=== PATIENT | male | born 1965 | race Hispanic/Latino ===

== ENCOUNTER 2020-03-03 10:56 | Inpatient (IN) | payer BC, OTHER ==
[2020-02-27 11:54] LABS: BASOPHILS % 0.2 % (0.0-1.0); EOSINOPHILS # (AUTO) 0.1 (0.0-0.4); EOSINOPHILS % 1.2 % (0.0-6.0); HEMATOCRIT 39.7 % (38.2-49.6); HEMOGLOBIN 13.3 g/dL (14.0-18.0); LYMPHOCYTES # (AUTO) 1.3 (1.0-3.2); LYMPHOCYTES % 30.6 % (18.0-39.1); MEAN CORPUSCULAR HEMOGLOBIN 29.3 pg (28-32); MEAN CORPUSCULAR HGB CONC 33.5 g/dL (31-35); MEAN CORPUSCULAR VOLUME 87.4 fL (81-99); MONOCYTES # (AUTO) 0.4 (0.2-0.8); MONOCYTES % 10.3 % (4.4-11.3); NEUTROPHILS # (AUTO) 2.3 (2.1-6.9); NEUTROPHILS % 56.7 % (38.7-80.0); PLATELET COUNT 229 x10e3/uL (140-360); RED BLOOD COUNT 4.54 x10e6/uL (4.3-5.7); RED CELL DISTRIBUTION WIDTH 12.4 % (11.7-14.4)
[2020-02-27 12:17] LABS: ANION GAP 13.6 mmol/L (8-16); BLOOD UREA NITROGEN 8 mg/dL (7-26); BUN/CREATININE RATIO 7 (6-25); CALCIUM 9.1 mg/dL (8.4-10.2); CARBON DIOXIDE 22 mmol/L (22-29); CHLORIDE 104 mmol/L (98-107); CREATININE, SERUM 1.12 mg/dL (0.72-1.25); EST GLOMERULAR FILTRATION RATE > 60 ML/MIN (60-); GLUCOSE 86 mg/dL (74-118); POTASSIUM 3.6 mmol/L (3.5-5.1); SODIUM 136 mmol/L (136-145)
[2020-02-27 13:43] LABS: LYMPHOCYTES % (MANUAL) 25 % (19-48); MONOCYTES % (MANUAL) 10 % (3.4-9.0); NEUTROPHILS % (MANUAL) 62 % (40-74); PLATELET ESTIMATE ADEQUATE; PLATELET MORPHOLOGY COMMENT NORMAL; RBC MORPHOLOGY COMMENT NORMAL
[~2020-03-03] VITALS: Ht 167.6 cm; Wt 107.2 kg
[~2020-03-03 10:56] MED LIST: BICALUTAMIDE50 MG PO; FLOMAX0.4 MG PO
[2020-03-03] MEDS ORDERED: CEFAZOLIN SOD 1 GM/NS 50ML 100 ML IV ONE (11:17)
[2020-03-03] MEDS ORDERED: MIDAZOLAM HCL 2 MG/2 ML VIAL ONE (14:22)
[2020-03-03] MEDS ORDERED: FENTANYL CITRATE/PF 100MCG/2 ML INJ ONE (14:22)
[2020-03-03] MEDS ORDERED: ISOFLURANE INHAL SOLN 250 ML BTL INH ONE (15:02)
[2020-03-03] MEDS ORDERED: PROPOFOL IV EMULSION 10 MG/ML 20 ML VIAL ONE (15:02)
[2020-03-03] MEDS ORDERED: LIDOCAINE HCL 2% LOCAL INJ 5 ML SDV VIAL INJ ONE (15:02)
[2020-03-03] MEDS ORDERED: ONDANSETRON HCL INJ 2MG/ML 2ML 2 MG/ML VIAL ONE (15:02)
[2020-03-03] MEDS ORDERED: ROCURONIUM BROMIDE 10 MG/ML 5ML VIAL IV ONE (15:02)
[2020-03-03] MEDS ORDERED: HYDROMORPHONE 2MG/ML 2 MG/ML ML ONE (16:36)
[2020-03-03] MEDS ORDERED: NALOXONE HCL INJ 0.4 MG/ML AMP IV PRN (16:45)
[2020-03-03] MEDS ORDERED: SOD CHL 0.45%/POT CHL 20MEQ 1,000 ML IV SCH (16:45)
[2020-03-03] MEDS ORDERED: DIPHENHYDRAMINE HCL INJ 50 MG/ML VIAL IM PRN (16:45)
[2020-03-03] MEDS: SODIUM CHLORIDE 0.9% 250ML IRRIG IR SCH ×2 (16:45→22:04)
[2020-03-03] MEDS ORDERED: MORPHINE SULFATE 1 MG/ML 30ML PCA IV PRN (16:45)
[2020-03-03] MEDS ORDERED: ACETAMINOPHEN 1000 MG/100 ML IV PRN (16:45)
[2020-03-03] MEDS ORDERED: ONDANSETRON HCL INJ 2MG/ML 2ML 2 MG/ML VIAL IV PRN (16:45)
[2020-03-03] MEDS: DOCUSATE SODIUM 100 MG CAP PO SCH (17:00)
--- NOTE | 2020-03-03 17:19 | NUR ---
RECEIVED PATIENT FROM PACU. PATIENT A/O X3, EVEN RESPIRATIONS ON 2LNC. LUNG SOUNDS CLEAR TO AUSCULTATION. NGT TO RIGHT NARE LCWS. 19 FR JIMY DRAIN IN [address]ACE. MIDLINE ABDOMINAL INCISION, DRAINAGE CIRCLED. [address] WITH 30 CC BALLOON, URINE ORANGE, HEMATURIA PRESENT. LEFT HAND 20 GAUGE IV WITH IVF. HE HOSE AND SCD'S IN PLACE. MORPHINE BAKERY DECORATOR PUMP IN PLACE. VITAL SIGNS STABLE. CALL LIGHT IN REACH WILL CONTINUE TO MONITOR PATIENT.
[2020-03-03 17:40] VITALS: BP 110/72
[2020-03-03 17:43] VITALS: BP 110/72
[2020-03-03 17:45] VITALS: BP 110/72
[2020-03-03] MEDS: D5.45%NS/KCL 20MEQ 1,000 ML IV SCH (18:07)
[2020-03-03 20:00] VITALS: BP 120/74
--- NOTE | 2020-03-03 20:05 | NUR ---
PATIENT TRANSFERRED TO ROOM 185. PATIENT IS IN STABLE CONDITION. RECEIVING NURSE AT BEDSIDE. REPORT GIVEN BEFORE TRANSFER.
--- NOTE | 2020-03-03 20:20 | NUR ---
Received pt via stretcher to room. Pt a/o able to answer direct questions. Rates pain 8/10 on pain scale. Educated pt to push button for pain meds via Morphine GROCERY STOCKER. Resp even and unlabored. No s/sx of acute distress noted. Dsg to abd in tact, drainage bloody, noted and circled. Moralez to DD in place with red colored urine noted. Personal items within reach as well as call marin. Bed in low and locked position. Pt asking for water/ice chips will check orders and inform pt of npo status. IVF infusing no diff. Will cont to mon. Addendum: 03/04/20 at 0013 by Becki Livingston RN Moralez to DD noted to have sukhdev color urine
[2020-03-03] MEDS: CEFAZOLIN SOD 1 GM/NS 50ML 50 ML IV SCH (22:04)
[2020-03-03 22:31] VITALS: BP 120/74
[2020-03-04] VITALS (8 sets, daily range): BP systolic 123–130; BP diastolic 69–84
--- NOTE | 2020-03-04 00:11 | NUR ---
Pt sitting up in bed, educated on incentive spirometer. Pt demonstrate proper use. Encouraged to use every hour while awake 10 times. Pt verbalized agreement. Rates pain a 7 at this time, states it is tolerable and stated he is using the DREDGE MASTER. Will cont to mon.
[2020-03-04] MEDS: D5.45%NS/KCL 20MEQ 1,000 ML IV SCH ×2 (02:00→14:15)
[2020-03-04] MEDS: SODIUM CHLORIDE 0.9% 250ML IRRIG IR SCH ×6 (04:45→20:45)
[2020-03-04 05:36] LABS: BASOPHILS % 0.2 % (0.0-1.0); EOSINOPHILS # (AUTO) 0.1 (0.0-0.4); EOSINOPHILS % 1.6 % (0.0-6.0); HEMATOCRIT 37.3 % (38.2-49.6); LYMPHOCYTES # (AUTO) 1.1 (1.0-3.2); LYMPHOCYTES % 19.1 % (18.0-39.1); MEAN CORPUSCULAR HEMOGLOBIN 29.1 pg (28-32); MEAN CORPUSCULAR HGB CONC 32.2 g/dL (31-35); MEAN CORPUSCULAR VOLUME 90.5 fL (81-99); MONOCYTES # (AUTO) 0.7 (0.2-0.8); MONOCYTES % 12.1 % (4.4-11.3); NEUTROPHILS # (AUTO) 3.9 (2.1-6.9); NEUTROPHILS % 66.7 % (38.7-80.0); PLATELET COUNT 293 x10e3/uL (140-360); RED BLOOD COUNT 4.12 x10e6/uL (4.3-5.7); RED CELL DISTRIBUTION WIDTH 12.5 % (11.7-14.4)
[2020-03-04] MEDS: CEFAZOLIN SOD 1 GM/NS 50ML 50 ML IV SCH ×2 (06:00→13:50)
[2020-03-04 07:46] LABS: ANION GAP 12.7 mmol/L (8-16); BLOOD UREA NITROGEN 6 mg/dL (7-26); BUN/CREATININE RATIO 7 (6-25); CALCIUM 9.1 mg/dL (8.4-10.2); CARBON DIOXIDE 24 mmol/L (22-29); CHLORIDE 106 mmol/L (98-107); CREATININE, SERUM 0.85 mg/dL (0.72-1.25); EST GLOMERULAR FILTRATION RATE > 60 ML/MIN (60-); GLUCOSE 105 mg/dL (74-118); POTASSIUM 3.7 mmol/L (3.5-5.1); SODIUM 139 mmol/L (136-145)
[2020-03-04] MEDS: TAMSULOSIN HCL 0.4 MG CAP PO SCH (08:55)
[2020-03-04] MEDS: DOCUSATE SODIUM 100 MG CAP PO SCH ×2 (08:55→16:56)
[2020-03-04] MEDS: BICALUTAMIDE 50 MG TABLET PO SCH (08:55)
[2020-03-04] MEDS ORDERED: ACETAMINOPHEN 1000 MG/100 ML IV PRN (09:30)
[2020-03-04] MEDS ORDERED: ONDANSETRON HCL INJ 2MG/ML 2ML 2 MG/ML VIAL IV PRN (09:30)
--- NOTE | 2020-03-04 10:41 | History and Physical ---
The patient admitted for postop TURP procedure with bilateral pelvic lymph node dissection. The patient's COVID-19 test came back positive. SUMMARY: The patient is a 54-year-old male with prostate cancer. The patient is basically on prostate cancer medication treatment. The patient was scheduled for TURP procedures and also bilateral pelvic lymph node dissection and the test for COVID-19 was done prior to surgery, but results did not come back until after the surgery that was done. The patient's test, however, came back to be positive. The patient is now on isolation. He is on CAUL DRESSER pump for pain control. He is stable other than complained of postoperative care. No respiratory distress. No chest pain. No shortness of breath. No nausea or vomiting. The patient is admitted on isolation for COVID-19 positive. The patient is also admitted for postoperative care. PAST MEDICAL HISTORY: Prostate cancer, status post TURP with bilateral pelvic lymph node dissection. SOCIAL HISTORY: The patient does not smoke or use alcohol. No regular drug. ALLERGIES: NO KNOWN ALLERGIES. HOME MEDICATIONS: Flomax and Casodex. PHYSICAL EXAMINATION: VITAL SIGNS: Temperature 99.8, blood pressure 123/77, pulse rate is 83, and respirations 18. GENERAL: The patient is comfortable, postop. HEENT: Normocephalic and atraumatic. Anicteric. NECK: Supple grossly. PULMONARY: Diminished breath sounds. CARDIOVASCULAR: S1, S2. Regular rate and rhythm. ABDOMEN: Soft. Positive bowel sounds. Nontender, non-distention. Bilateral pelvic lymph node dissection status post. Status post TURP. EXTREMITIES: No cyanosis or edema. SCD in place. NEUROLOGIC: No focal deficit. LABORATORY DATA: WBC is 5.7, hemoglobin 12, hematocrit 37, and platelets 295. Chemistry; sodium 136, potassium 3.6, chloride 104, bicarb 22, BUN is 8, creatinine 1.1, glucose 86. SEROLOGY: COVID-19 PCR is detected. Test was done on February 27, 2020. IMPRESSION: 1. Status post postoperative care, TURP and bilateral pelvic lymph node dissection. 2. COVID-19 positive. 3. Prostate cancer. PLAN: Isolation of course. Oxygen support if needed. Postoperative care. Pain control. SCD. Home medication resumed. Diet as tolerated. Consultation with Infectious Disease. We will continue to monitor the patient closely at this time for any changes in respiratory symptoms. MD CAREY Boles /[id number]
--- NOTE | 2020-03-04 12:41 | NUR ---
URINARY TEMPLETON REMOVED PER PHYSICIAN ORDER. PATIENT TOLERATED PROCEDURE WELL. CATHETER TIP INTACT. PATIENT DUE TO VOID BY 1809. URINAL AT BEDSIDE. INSTRUCTED TO USE CALL LIGHT. NGT REMOVED PER PHYSICIAN ORDER.
[2020-03-04] MEDS: MORPHINE SULFATE INJ 4 MG/ML INJ 1ML IV PRN (14:14)
[2020-03-04] MEDS: MORPHINE SULFATE 1 MG/ML 30ML PCA IV PRN (14:25)
--- NOTE | 2020-03-04 17:54 | NUR ---
CONSULTATION [id number]
--- NOTE | 2020-03-04 20:48 | Consultation ---
DATE OF CONSULTATION: HISTORY OF PRESENT ILLNESS: This is a COVID patient, who is a 54-year-old, who comes into the hospital because of fatigue. The patient who has history of prostate cancer. He was scheduled for TURP, but his COVID-19 was positive, so the surgery was postponed. He is currently alert, oriented, but he is just weak. PAST SURGICAL HISTORY: Prostate cancer, status post TURP and bilateral pelvic lymph node. ALLERGIES: NKA. SOCIAL HISTORY: There is no smoking, drug abuse, or alcohol abuse. FAMILY HISTORY: Unremarkable. PHYSICAL EXAMINATION: GENERAL: He is currently alert, oriented, does not in acute distress. VITAL SIGNS: Stable, afebrile. HEENT: He is not icteric. NECK: Supple. CHEST: Clear. HEART: S1-S2. No murmur. ABDOMEN: Soft. IMPRESSION: Coronavirus disease, seems to me he has an upper respiratory infection, but he seems very comfortable. He is not on oxygen. From Infectious Disease point of view, the patient is stable to be discharged home, two weeks of home quarantine, supplement vitamins, zinc, and C and D and in 2 weeks if he continued to be stable, can proceed with surgery. However, his PCR could be still positive, but that does not really reflect virus infection at that time. If it is still positive and clinically seems to be stable recommendation of that is asymptomatic for more than 2 weeks and doing good. I think we can go off the droplet isolation. We will discuss with the medical team. MD JAYNA Robertson/MARIAN /[id number]
[2020-03-04] MEDS ORDERED: MEROPENEM 500MG/ NS 50ML 50 ML IV ONE (22:30)
[2020-03-05] VITALS (8 sets, daily range): BP systolic 113–132; BP diastolic 70–90
[2020-03-05] MEDS: D5.45%NS/KCL 20MEQ 1,000 ML IV SCH (02:00)
[2020-03-05] MEDS ORDERED: MEROPENEM 500MG/ NS 50ML 50 ML IV SCH (04:00)
--- NOTE | 2020-03-05 04:30 | NUR ---
Pt noted to have elevated temp during shift, reported at 102.7 oral. Call placed to ID MD with orders noted to change IVABX to Meropenem 500mg IV Q4hr. Pt also med with IC acetaminophen per OCT. Pt temp noted to decrease see vs. Will cont to tue.
[2020-03-05 05:36] LABS: BASOPHILS % 0.4 % (0.0-1.0); EOSINOPHILS % 0.2 % (0.0-6.0); HEMATOCRIT 37.6 % (38.2-49.6); HEMOGLOBIN 12.2 g/dL (14.0-18.0); LYMPHOCYTES # (AUTO) 1.2 (1.0-3.2); LYMPHOCYTES % 10.9 % (18.0-39.1); MEAN CORPUSCULAR HEMOGLOBIN 29.8 pg (28-32); MEAN CORPUSCULAR HGB CONC 32.4 g/dL (31-35); MEAN CORPUSCULAR VOLUME 91.7 fL (81-99); MONOCYTES # (AUTO) 1.3 (0.2-0.8); MONOCYTES % 11.9 % (4.4-11.3); NEUTROPHILS # (AUTO) 8.2 (2.1-6.9); NEUTROPHILS % 75.8 % (38.7-80.0); PLATELET COUNT 267 x10e3/uL (140-360); RED CELL DISTRIBUTION WIDTH 12.5 % (11.7-14.4)
[2020-03-05 05:53] LABS: ANION GAP 12.8 mmol/L (8-16); BLOOD UREA NITROGEN 5 mg/dL (7-26); BUN/CREATININE RATIO 5 (6-25); CALCIUM 8.9 mg/dL (8.4-10.2); CARBON DIOXIDE 20 mmol/L (22-29); CHLORIDE 107 mmol/L (98-107); CREATININE, SERUM 0.94 mg/dL (0.72-1.25); EST GLOMERULAR FILTRATION RATE > 60 ML/MIN (60-); GLUCOSE 97 mg/dL (74-118); POTASSIUM 3.8 mmol/L (3.5-5.1); SODIUM 136 mmol/L (136-145)
--- NOTE | 2020-03-05 07:46 | NUR ---
infectious disease progress note Patient seen and examined chart reviewed Patient is alert oriented no new complaints but with fever Vitals stable with fever HEENT normocephalic not be returning Neck supple no JVD Chest clear bilateral Heart S1-S2 Abdomen soft person present not tenderness Extremities no edema skin no rash Impression Fever not hypoxemic covid 19 We will get blood cultures urine cultures chest x-ray chest CAT scan Place the patient on Rocephin discontinue meropenem Continue droplet isolation
[2020-03-05 08:02] LABS: ALBUMIN 2.7 g/dL (3.5-5.0); BILIRUBIN,DIRECT 0.6 mg/dL (0.0-0.5)
[2020-03-05] MEDS: CEFTRIAXONE SOD 1 GM/NS 50 ML 50 ML IV SCH (09:17)
[2020-03-05] MEDS: BICALUTAMIDE 50 MG TABLET PO SCH (09:17)
[2020-03-05] MEDS: DOCUSATE SODIUM 100 MG CAP PO SCH ×2 (09:17→17:28)
[2020-03-05] MEDS: TAMSULOSIN HCL 0.4 MG CAP PO SCH (09:17)
[2020-03-05] MEDS ORDERED: IOPAMIDOL 370 MG/ML 200 ML INFUS..BTL INJ ONE ×2 (09:53→21:57)
--- NOTE | 2020-03-05 11:58 | NUR ---
DR. COHN AWARE OF T101.1. SEE ORDERS
[2020-03-05] MEDS ORDERED: ACETAMINOPHEN 1000 MG/100 ML IV PRN (12:30)
[2020-03-05] MEDS ORDERED: SODIUM CHLORIDE 0.9% 250ML 250 ML ONE (14:19)
[2020-03-05] MEDS ORDERED: VANCOMYCIN 1GM/NS 250 ML 250 ML IV ONE (14:30)
--- NOTE | 2020-03-05 14:59 | NUR ---
fever s/p surgery check ct rocephin and vanc
--- NOTE | 2020-03-05 19:20 | NUR ---
Completed BS rounds with morning nurse. Pt alert and oriented to name. CARD PLACER pump admin recorded. Call light and phone within reach. c/o bilateral leg pains, encouraged to use CARD PLACER when available. Will continue to monitor.
--- NOTE | 2020-03-05 19:30 | NUR ---
Report given to oncoming nurse of patient's status. Resting in bed. NO s/s of acute distress noted. abdominal dressing clean, dry, and intact. Side rails upx2, call light within reach, bed alarm on.
--- NOTE | 2020-03-05 19:34 | Diagnostic Imaging Report ---
EXAMINATION: CHEST XRAY LINE PLACEMENT INDICATION: ^s/p PICC line placement ^[id number] ^[id number] COMPARISON: None FINDINGS: AP view TUBES and LINES: Left PICC in place with tip projecting over the junction of SVC and left brachiocephalic vein. LUNGS: Lungs are well inflated. Right lower lobe airspace opacities. PLEURA: No significant pleural effusion or pneumothorax. HEART AND MEDIASTINUM: The cardiomediastinal silhouette is enlarged. BONES AND SOFT TISSUES: No acute osseous lesion. Soft tissues are unremarkable. UPPER ABDOMEN: No free air under the diaphragm. IMPRESSION: Left PICC in place with tip projecting over the junction of SVC and left brachiocephalic vein. No visible pneumothorax. Right lower lobe airspace opacities, representing atelectasis and/or pneumonia in the appropriate clinical context. Signed by: Dr. Zeus Guerrero MD on 03/05/2020 7:31 PM
--- NOTE | 2020-03-05 20:20 | NUR ---
Transported to radiology for CT chest W via stretcher.
[2020-03-05] MEDS ORDERED: SODIUM CHLORIDE 0.9% 50ML 50 ML ONE (21:57)
--- NOTE | 2020-03-05 22:02 | NUR ---
Spoke with Dr. Alexis, radiologist. regarding CT chest W, gave results, requested primary Dr. Reyes phone number, stated will call Dr. Reyes with results.
--- NOTE | 2020-03-05 22:16 | Diagnostic Imaging Report ---
EXAM: CT Chest, Abdomen and Pelvis WITH contrast INDICATION: Fever COMPARISON: None. TECHNIQUE: Chest, abdomen and pelvis were scanned utilizing a multidetector helical scanner from the lung apex to the pubic symphysis after administration of IV contrast. Coronal and sagittal reformations were obtained. Routine protocol was performed. Scan was performed when during portal venous phase. IV CONTRAST: 100 mL of Isovue 370 ORAL CONTRAST: None COMPLICATIONS: None RADIATION DOSE: Total DLP: 1041 mGy*cm Estimated effective dose: (DLP x 0.015 x size factor) mSv CTDIvol has been reviewed. It is below the limits set by the Radiation Protocol Committee (RPC). Dose modulation, iterative reconstruction, and/or weight based adjustment of the mA/kV was utilized to reduce the radiation dose to as low as reasonably achievable. FINDINGS: LINES and TUBES: Left upper extremity PICC tip terminates in the right atrium. Percutaneous drain in the lower pelvis. LUNGS AND AIRWAYS: Filling defect within the left lower lobar pulmonary artery extending into basal segmental branches (series 2 image 24). Debris in the lower lobe bronchus with some mucus plugging. Coarse opacities in the lung bases. Scattered bilateral ground glass opacities. PLEURA: The pleural spaces are clear. HEART AND MEDIASTINUM: The thyroid gland is normal. No mediastinal, hilar or axillary lymphadenopathy. The heart is normal in size. There is no pericardial effusion. Flattened interventricular septum. Right ventricle volume greater than the left. HEPATOBILIARY: No focal hepatic lesions. No biliary ductal dilation. GALLBLADDER: No radio-opaque stones or sludge. No wall thickening. SPLEEN: No splenomegaly. PANCREAS: No focal masses or ductal dilatation. Fatty infiltration of the pancreas. ADRENALS: No adrenal nodules KIDNEYS/URETERS: Kidneys enhance symmetrically. No hydronephrosis. No cystic or solid mass lesions. No stones. GI TRACT: No abnormal distention, wall thickening, or evidence of bowel obstruction. Appendix is normal. PELVIC ORGANS/BLADDER: Surgeries of prostate resection in the lower central pelvis Mild urinary bladder wall thickening. LYMPH NODES: No lymphadenopathy. Surgical changes of no resection in the lower pelvis. VESSELS: Arterial calcifications. PERITONEUM / RETROPERITONEUM: No free air or fluid. BONES: Degenerative changes. Left L5 inferior pars defect. SOFT TISSUES: Uncomplicated midline lower anterior abdominal vertical incision. There are fat containing inguinal hernias. IMPRESSION: 1. Left lower lobar/segmental pulmonary embolus. Radiologic findings of right heart strain. 2. Bibasilar consolidative opacities and debris in the lower lobe airways consistent with aspiration pneumonia. 3. Patchy multifocal groundglass, opacities consistent with viral pneumonia. 4. Expected postsurgical changes in the pelvis status post prostate/pelvic chely resection. 5. Mild urinary bladder wall thickening can be due to recent surgery, however correlate for cystitis. Findings discussed with Dr. Reyes at 10:00 PM on 03/05/[address] Alexis via telephone. [place] Signed by: Adrian Alexis DO on 03/05/2020 10:13 PM
--- NOTE | 2020-03-05 22:17 | NUR ---
airplane technician called and stated could not perform another CT chest With contrast until 24hrs after contrast per protocol. Tech will contact Radiologist for further orders regarding CT chest with the additional contrast.
--- NOTE | 2020-03-05 23:12 | NUR ---
Called Dr. Reyes again to infer about the CT chest W. Dr. Reyes ordered to begin Heparin weight based protocol and consult Dr. Desir.
[2020-03-05] MEDS ORDERED: HEPARIN SOD (PORCINE) 5,000 UNIT/ML VIAL IV ONE (23:45)
[2020-03-05] MEDS ORDERED: HEPARIN 25,000 UNIT DRIP IV ONE (23:58)
[2020-03-06] VITALS (8 sets, daily range): BP systolic 120–146; BP diastolic 74–88
[2020-03-06] MEDS ORDERED: IOPAMIDOL 370 MG/ML 200 ML INFUS..BTL INJ ONE (00:25)
[2020-03-06] MEDS ORDERED: SODIUM CHLORIDE 0.9% 50ML 50 ML ONE (00:26)
[2020-03-06] MEDS: HEPARIN 25,000 UNIT 25,000 UNIT in DEXTROSE 5% 250ML 0 ML IV SCH (00:45)
[2020-03-06] MEDS: MORPHINE SULFATE 1 MG/ML 30ML PCA IV PRN (00:50)
--- NOTE | 2020-03-06 01:00 | NUR ---
Pt lying in bed with eyes closed, RR even and unlabored 20, HOB [address] Heparin running @15ml/hr in left PICC. Bed locked.
[2020-03-06 01:14] LABS: BASOPHILS % 0.2 % (0.0-1.0); EOSINOPHILS # (AUTO) 0.1 (0.0-0.4); EOSINOPHILS % 0.5 % (0.0-6.0); HEMATOCRIT 35.5 % (38.2-49.6); HEMOGLOBIN 11.4 g/dL (14.0-18.0); LYMPHOCYTES # (AUTO) 1.3 (1.0-3.2); MEAN CORPUSCULAR HEMOGLOBIN 28.6 pg (28-32); MEAN CORPUSCULAR HGB CONC 32.1 g/dL (31-35); MEAN CORPUSCULAR VOLUME 89.2 fL (81-99); MONOCYTES % 9.1 % (4.4-11.3); NEUTROPHILS # (AUTO) 8.6 (2.1-6.9); NEUTROPHILS % 77.7 % (38.7-80.0); PLATELET COUNT 286 x10e3/uL (140-360); RED BLOOD COUNT 3.98 x10e6/uL (4.3-5.7); RED CELL DISTRIBUTION WIDTH 12.8 % (11.7-14.4)
[2020-03-06 01:33] LABS: ANION GAP 12.8 mmol/L (8-16); BLOOD UREA NITROGEN 8 mg/dL (7-26); BUN/CREATININE RATIO 10 (6-25); CALCIUM 9.2 mg/dL (8.4-10.2); CARBON DIOXIDE 23 mmol/L (22-29); CHLORIDE 106 mmol/L (98-107); CREATININE, SERUM 0.84 mg/dL (0.72-1.25); EST GLOMERULAR FILTRATION RATE > 60 ML/MIN (60-); GLUCOSE 90 mg/dL (74-118); POTASSIUM 3.8 mmol/L (3.5-5.1); SODIUM 138 mmol/L (136-145)
[2020-03-06 01:58] LABS: INR 1.36; PROTHROMBIN TIME 17.7 seconds (11.9-14.5)
[2020-03-06] MEDS: GABAPENTIN 100 MG CAP PO SCH ×3 (06:00→20:42)
--- NOTE | 2020-03-06 06:19 | NUR ---
left message with answering service for consult René Pierson
[2020-03-06 06:27] LABS: BASOPHILS % 0.2 % (0.0-1.0); EOSINOPHILS % 0.3 % (0.0-6.0); HEMATOCRIT 35.3 % (38.2-49.6); HEMOGLOBIN 11.4 g/dL (14.0-18.0); LYMPHOCYTES # (AUTO) 1.3 (1.0-3.2); LYMPHOCYTES % 11.5 % (18.0-39.1); MEAN CORPUSCULAR HEMOGLOBIN 29.5 pg (28-32); MEAN CORPUSCULAR HGB CONC 32.3 g/dL (31-35); MEAN CORPUSCULAR VOLUME 91.5 fL (81-99); MONOCYTES # (AUTO) 1.1 (0.2-0.8); MONOCYTES % 9.6 % (4.4-11.3); NEUTROPHILS # (AUTO) 8.7 (2.1-6.9); NEUTROPHILS % 77.6 % (38.7-80.0); PLATELET COUNT 275 x10e3/uL (140-360); RED BLOOD COUNT 3.86 x10e6/uL (4.3-5.7); RED CELL DISTRIBUTION WIDTH 12.7 % (11.7-14.4)
--- NOTE | 2020-03-06 07:00 | NUR ---
RECEIVED SHIFT REPORT FROM OFF GOING NIGHT NURSE. PATIENT IN STABLE CONDITION, NO S/S OF DISTRESS NOTED. ON OXYGEN 2LPM/NC. PICC TO THE LEFT UPPER ARM ASYMPTOMATIC AND PATIENT IV FLUIDS INFUSING,TRANSPARENT DRESSING C/D/I. PATIENT ON DOOR TO DOOR SALESPERSON PUMP. BED IN LOWEST POSTION AND LOCKED. CALL LIGHT WITHIN REACH.
[2020-03-06 08:35] LABS: BASOPHILS % 0.3 % (0.0-1.0); EOSINOPHILS % 0.4 % (0.0-6.0); HEMATOCRIT 34.6 % (38.2-49.6); HEMOGLOBIN 10.9 g/dL (14.0-18.0); LYMPHOCYTES % 10.6 % (18.0-39.1); MEAN CORPUSCULAR HEMOGLOBIN 28.6 pg (28-32); MEAN CORPUSCULAR HGB CONC 31.5 g/dL (31-35); MEAN CORPUSCULAR VOLUME 90.8 fL (81-99); MONOCYTES % 10.2 % (4.4-11.3); NEUTROPHILS # (AUTO) 7.3 (2.1-6.9); NEUTROPHILS % 77.8 % (38.7-80.0); PLATELET COUNT 276 x10e3/uL (140-360); RED BLOOD COUNT 3.81 x10e6/uL (4.3-5.7); RED CELL DISTRIBUTION WIDTH 12.8 % (11.7-14.4)
[2020-03-06] MEDS ORDERED: ALBUTEROL SULFATE HFA 8GM INHALATION AEROSOL INH PRN (09:00)
--- NOTE | 2020-03-06 09:08 | NUR ---
TRIED TO NOTIFY ABOUT THE CRITICAL LAB RESULT APTT OF 182.6 WAS TOLD TO FOLLOW THE CHART.
[2020-03-06] MEDS ORDERED: ACETAMINOPHEN 1000 MG/100 ML IV PRN (09:30)
[2020-03-06] MEDS ORDERED: MAGNESIUM HYDROXIDE 30 ML UDC PO PRN (09:30)
[2020-03-06] MEDS ORDERED: BISACODYL 10 MG SUPP PR PRN (09:30)
[2020-03-06] MEDS: TAMSULOSIN HCL 0.4 MG CAP PO SCH (09:57)
[2020-03-06] MEDS: CEFTRIAXONE SOD 1 GM/NS 50 ML 50 ML IV SCH (09:57)
[2020-03-06] MEDS: SENNA-S TABLET PO SCH ×2 (09:57→20:42)
[2020-03-06] MEDS: BICALUTAMIDE 50 MG TABLET PO SCH (09:57)
--- NOTE | 2020-03-06 10:01 | Consultation ---
DATE OF CONSULTATION: Pulmonary Consultation The patient of Dr. Reyes, Dr. Gorman, and Dr. Arriaza. HISTORY OF PRESENT ILLNESS: Unfortunate 54-year-old gentleman, history of prostate cancer and renal stones. The patient's apparently COVID testing was delayed and did not return until after he underwent TURP and pelvic lymph node resection. His course was complicated by pulmonary emboli postoperatively. The patient underwent cystoscopy and bilateral lymph node dissection. Apparently, he had already undergone TURP, developed severe pain in the legs postoperatively and was found to have multiple pulmonary emboli. PHYSICAL EXAMINATION: VITAL SIGNS: He is currently in no acute distress on room air. Temperature 99, pulse 99, respirations 18, blood pressure 132/81. GENERAL: Burly white male, in no acute distress. HEART: Regular rhythm. ABDOMEN: Nontender. Surgical wounds. EXTREMITIES: Decreased movement due to pain and swelling. Suspect DVT and PE. PE was documented. Request venous Doppler. Continue anticoagulation, which he is tolerating. Incentive spirometry, mobilization, left lower lobe pulmonary emboli and patchy bilateral infiltrates consistent with COVID or viral pneumonia. Thank you for this kind referral. MD EFFIE Bertrand/MARIAN /[id number]
--- NOTE | 2020-03-06 14:00 | Diagnostic Imaging Report ---
Examination: MRI SPINE LUMBAR WO CONTRAST History: Prostate cancer. Unable to move legs. Comparison studies: None Technique: Sagittal, coronal and axial T2 , sagittal T1 and STIR; axial spin density oblique. Findings: Number of lumbar vertebral bodies: Five. Alignment: Normal lordosis. No scoliosis. Soft tissues: No T2 hyperintense inflammatory changes. Posterior paraspinal soft tissues and muscles: No abnormality. Lower thoracic cord: Normal in signal and morphology. The tip of the conus is at the bottom of T12. Cauda equina: No masses. No arachnoiditis. Vertebrae: No fractures, infection or neoplasm. Degenerative changes: L1-L2: No abnormalities. L2-L3: Mild diffuse disc bulge. No foraminal or canal stenosis L3-L4: Mild diffuse disc bulge and bilateral facet arthropathy causes mild canal stenosis. No foraminal stenosis. L4-L5: Diffuse disc bulge and bilateral facet arthropathy result in moderate bilateral neural foraminal narrowing and mild canal stenosis. Moderate bilateral facet joint effusions with bilateral posterior paraspinal synovial cysts, measuring 1.1 cm on the right and 0.7 cm on the left. L5-S1: No abnormalities. IMPRESSION: No lumbar spine lesion to suggest metastasis. Moderate bilateral facet joint effusions at L4-L5, concerning for increased mobility of the joint. Flexion and extension lumbar spine x-rays are recommended to assess for listhesis. Degenerative changes from L2-L3 through L4-L5 with mild canal stenosis at L3-L4 and L4-L5. Moderate bilateral neural foraminal stenosis at L4-L5. Signed by: Dr. Lina Hendrickson M.D. on 03/06/2020 1:56 PM
[2020-03-06] MEDS: DOCUSATE SODIUM 100 MG CAP PO SCH (17:08)
--- NOTE | 2020-03-06 19:07 | NUR ---
COMPLETED SHIFT REPORT WITH ON COMING NIGHT NURSE. PATIENT STABLE, NO S/S OF DISTRESS NOTED. OXYGEN @ 2 LPM/NC. BED IN LOWEST POSITION AND LOCKED. CALL LIGHT WITHIN REACH.
--- NOTE | 2020-03-06 19:10 | NUR ---
SHIFT REPORT RECEIVED FROM MORNING NURSE. PT ALERT AND ORIENTED TO NAME, LYING IN BED HOB 75 DEGREES. O2@2L VIA NC. DENIES PAIN AT THIS TIME. SCDs IN PLACE. BED LOW AND LOCKED.
[2020-03-07] VITALS (9 sets, daily range): BP systolic 131–140; BP diastolic 84–98
[2020-03-07] MEDS: HEPARIN 25,000 UNIT 25,000 UNIT in DEXTROSE 5% 250ML 0 ML IV SCH ×2 (00:55→23:45)
[2020-03-07] MEDS: GABAPENTIN 100 MG CAP PO SCH ×3 (06:00→22:00)
[2020-03-07 06:07] LABS: BASOPHILS % 0.2 % (0.0-1.0); EOSINOPHILS % 0.5 % (0.0-6.0); HEMATOCRIT 33.3 % (38.2-49.6); HEMOGLOBIN 10.8 g/dL (14.0-18.0); LYMPHOCYTES # (AUTO) 1.1 (1.0-3.2); LYMPHOCYTES % 12.7 % (18.0-39.1); MEAN CORPUSCULAR HEMOGLOBIN 28.8 pg (28-32); MEAN CORPUSCULAR HGB CONC 32.4 g/dL (31-35); MEAN CORPUSCULAR VOLUME 88.8 fL (81-99); MONOCYTES # (AUTO) 0.9 (0.2-0.8); NEUTROPHILS # (AUTO) 6.6 (2.1-6.9); NEUTROPHILS % 75.7 % (38.7-80.0); PLATELET COUNT 313 x10e3/uL (140-360); RED BLOOD COUNT 3.75 x10e6/uL (4.3-5.7); RED CELL DISTRIBUTION WIDTH 12.8 % (11.7-14.4)
[2020-03-07 06:37] LABS: ANION GAP 14.2 mmol/L (8-16); BLOOD UREA NITROGEN 13 mg/dL (7-26); BUN/CREATININE RATIO 17 (6-25); CALCIUM 8.9 mg/dL (8.4-10.2); CARBON DIOXIDE 24 mmol/L (22-29); CHLORIDE 103 mmol/L (98-107); CREATININE, SERUM 0.78 mg/dL (0.72-1.25); EST GLOMERULAR FILTRATION RATE > 60 ML/MIN (60-); GLUCOSE 104 mg/dL (74-118); POTASSIUM 3.2 mmol/L (3.5-5.1); SODIUM 138 mmol/L (136-145)
[2020-03-07] MEDS: CEFTRIAXONE SOD 1 GM/NS 50 ML 50 ML IV SCH (08:30)
[2020-03-07] MEDS ORDERED: POTASSIUM CHLORIDE 10MEQ EA PO ONE (09:30)
[2020-03-07] MEDS: SENNA-S TABLET PO SCH ×2 (09:38→19:52)
[2020-03-07] MEDS: BICALUTAMIDE 50 MG TABLET PO SCH (09:38)
[2020-03-07] MEDS: DOCUSATE SODIUM 100 MG CAP PO SCH ×2 (09:38→17:00)
[2020-03-07] MEDS: TAMSULOSIN HCL 0.4 MG CAP PO SCH (09:38)
[2020-03-07] MEDS: ASCORBIC ACID 500 MG TAB PO SCH (17:12)
--- NOTE | 2020-03-07 19:30 | NUR ---
COMPLETED SHIFT REPORT WITH OFF GOING DAYSHIFT NURSE NAREN. PATIENT STABLE, NO S/S OF DISTRESS NOTED. NATE PICC PATENT OXYGEN @ 2 LPM/NC. BED IN LOWEST POSITION AND LOCKED. CALL LIGHT WITHIN REACH.
[2020-03-08] VITALS (15 sets, daily range): BP systolic 111–167; BP diastolic 90–113
[2020-03-08 05:07] LABS: BASOPHILS % 0.2 % (0.0-1.0); EOSINOPHILS % 0.2 % (0.0-6.0); HEMATOCRIT 38.6 % (38.2-49.6); HEMOGLOBIN 12.6 g/dL (14.0-18.0); LYMPHOCYTES # (AUTO) 1.2 (1.0-3.2); LYMPHOCYTES % 14.7 % (18.0-39.1); MEAN CORPUSCULAR HEMOGLOBIN 28.5 pg (28-32); MEAN CORPUSCULAR HGB CONC 32.6 g/dL (31-35); MEAN CORPUSCULAR VOLUME 87.3 fL (81-99); MONOCYTES # (AUTO) 1.2 (0.2-0.8); MONOCYTES % 14.9 % (4.4-11.3); NEUTROPHILS # (AUTO) 5.6 (2.1-6.9); NEUTROPHILS % 68.5 % (38.7-80.0); PLATELET COUNT 424 x10e3/uL (140-360); RED BLOOD COUNT 4.42 x10e6/uL (4.3-5.7); RED CELL DISTRIBUTION WIDTH 12.7 % (11.7-14.4)
--- NOTE | 2020-03-08 05:26 | NUR ---
PTT 40.9, PER ORDER RATE INCREASE, WILL CONTINUE TO MONITOR FOR BLEEDING, NATE PICC LINE PATENT
--- NOTE | 2020-03-08 05:47 | NUR ---
PTT REDRAW ORDERED FOR 03/08/20 @1130 WILL ENDORSE TO NEXT SHIFT TO COMPLETE AND CONT TO MONITOR FOR BLEEDING
[2020-03-08] MEDS: GABAPENTIN 100 MG CAP PO SCH ×3 (06:04→21:56)
[2020-03-08] MEDS: HYDROCODONE/APAP 10MG-325MG TAB PO PRN (06:11)
[2020-03-08] MEDS: ZINC SULFATE 220 MG CAP PO SCH (07:37)
[2020-03-08] MEDS: CEFTRIAXONE SOD 1 GM/NS 50 ML 50 ML IV SCH (08:00)
[2020-03-08] MEDS: DOCUSATE SODIUM 100 MG CAP PO SCH ×2 (09:00→14:41)
[2020-03-08] MEDS: SENNA-S TABLET PO SCH ×2 (09:00→20:05)
[2020-03-08] MEDS: BICALUTAMIDE 50 MG TABLET PO SCH (09:36)
[2020-03-08] MEDS: ASCORBIC ACID 500 MG TAB PO SCH ×2 (09:36→17:20)
[2020-03-08] MEDS: TAMSULOSIN HCL 0.4 MG CAP PO SCH (09:36)
--- NOTE | 2020-03-08 10:14 | NUR ---
HAD TWO VERY LOOSE BM. VANCE CALLAWAY
--- NOTE | 2020-03-08 10:21 | NUR ---
DR. ANTON HERE AND EXAMINED PATIENT. SPOKE WITH PATIENT ABOUT HIS NEEDS AND HIS CONT PAIN.
[2020-03-08] MEDS ORDERED: VANCOMYCIN 750MG/NS 150ML IVPB 150 ML IV SCH (10:30)
[2020-03-08] MEDS: ENOXAPARIN SODIUM INJ 100 MG/ML SYR SC SCH ×2 (11:58→21:56)
[2020-03-08] MEDS ORDERED: AZTREONAM 1 GM/NS 50 ML 50 ML IV SCH (12:00)
[2020-03-08] MEDS: AZTREONAM 1 GM/NS 50 ML 50 ML IV SCH ×3 (14:31→21:56)
--- NOTE | 2020-03-08 14:57 | NUR ---
Nutrition Screen Note RD Recommendation for Physician: -Continue regular diet Plan of Care: RD following, monitoring for tolerance and adequacy Nutrition reason for involvement: Length of stay Primary Diagnose(s): prostate cancer post-op TURP procedure PMH: prostate cancer Ht: 66 in Wt:251 lb BMI: 40.5 kg/m2 IBW:[address] Assessment: (03/08/20) Chart reviewed. Labs and meds reviewed. Pt is a 54 year old male admitted with prostate cancer and is post-op TURP procedure. Pt is primarily Turkmen speaking per chart. Pt is COVID-19+; therefore, unable to enter room due to droplet isolation precautions. It is recorded that pt consumed 75% of dinner yesterday and 75-100% of meals today. There are no previous weights in chart. Will continue to monitor. Current Diet: regular Malnutrition Evaluation (03/08/20) The patient does not meet criteria for a specified degree of malnutrition at this time. Will re-evaluate at follow-up as appropriate. Diet Education Needs Assessment: RD is available as needed Nutrition Care Level: low Signed: Lavinia Bowman, DALILA, LD
[2020-03-08] MEDS: VANCOMYCIN 750MG/NS 150ML IVPB 150 ML IV SCH (20:05)
[2020-03-08] MEDS ORDERED: SODIUM CHLORIDE 0.9% 250ML 250 ML ONE (21:09)
[2020-03-09] VITALS (14 sets, daily range): BP systolic 119–147; BP diastolic 90–102
[2020-03-09 05:43] LABS: BASOPHILS # (AUTO) 0.1 (0.0-0.1); BASOPHILS % 1.3 % (0.0-1.0); EOSINOPHILS # (AUTO) 0.1 (0.0-0.4); EOSINOPHILS % 1.3 % (0.0-6.0); HEMATOCRIT 40.9 % (38.2-49.6); HEMOGLOBIN 13.3 g/dL (14.0-18.0); LYMPHOCYTES # (AUTO) 1.7 (1.0-3.2); LYMPHOCYTES % 17.9 % (18.0-39.1); MEAN CORPUSCULAR HEMOGLOBIN 28.7 pg (28-32); MEAN CORPUSCULAR HGB CONC 32.5 g/dL (31-35); MEAN CORPUSCULAR VOLUME 88.1 fL (81-99); MONOCYTES # (AUTO) 1.5 (0.2-0.8); MONOCYTES % 15.8 % (4.4-11.3); NEUTROPHILS # (AUTO) 5.3 (2.1-6.9); NEUTROPHILS % 56.9 % (38.7-80.0); PLATELET COUNT 407 x10e3/uL (140-360); RED BLOOD COUNT 4.64 x10e6/uL (4.3-5.7); RED CELL DISTRIBUTION WIDTH 12.9 % (11.7-14.4)
[2020-03-09] MEDS: GABAPENTIN 100 MG CAP PO SCH ×3 (06:14→17:13)
[2020-03-09] MEDS: AZTREONAM 1 GM/NS 50 ML 50 ML IV SCH (06:14)
[2020-03-09] MEDS: DOCUSATE SODIUM 100 MG CAP PO SCH ×2 (08:09→14:03)
[2020-03-09] MEDS: BICALUTAMIDE 50 MG TABLET PO SCH (08:09)
[2020-03-09] MEDS: ENOXAPARIN SODIUM INJ 100 MG/ML SYR SC SCH ×2 (08:09→22:30)
[2020-03-09] MEDS: ZINC SULFATE 220 MG CAP PO SCH (08:09)
[2020-03-09] MEDS: SENNA-S TABLET PO SCH ×2 (08:09→19:39)
[2020-03-09] MEDS: VANCOMYCIN 750MG/NS 150ML IVPB 150 ML IV SCH (08:09)
[2020-03-09] MEDS: ASCORBIC ACID 500 MG TAB PO SCH ×2 (08:09→17:13)
[2020-03-09] MEDS: TAMSULOSIN HCL 0.4 MG CAP PO SCH (08:09)
[2020-03-09 09:33] LABS: LYMPHOCYTES % (MANUAL) 15 % (19-48); MONOCYTES % (MANUAL) 14 % (3.4-9.0); NEUTROPHILS % (MANUAL) 68 % (40-74)
[2020-03-09 09:34] LABS: BAND NEUTROPHILS % (MANUAL) 2 %
[2020-03-09 09:35] LABS: HYPOCHROMASIA SLIGHT; RBC MORPHOLOGY COMMENT NORMAL
[2020-03-09] MEDS ORDERED: POTASSIUM CHLORIDE 10MEQ EA PO NR (11:00)
--- NOTE | 2020-03-09 19:30 | NUR ---
REPORT RECEIVED FROM NAREN INMAN, REPORTED TO ME, HEPARIN DRIP STOPPED & ALL IV ANTIBIOTIC STOPPED PER MD AT THIS TIME, PT AOX3, VSS AFEBERILE , PT REFUSING NARCOTIC PAIN MED AT THIS TIME, PAIN LEVEL REPORTED BY PATIENT AT 11/05 BLE, ONLY WANTS SCHEDULE GABAPENTIN PO FOR PAIN RELIEF AT THIS TIME, LYING COMFORTABLY IN BED RESP EVEN AND UNLABORED, OXYGEN THERAPY 2 LITERS VIA NC AT THIS TIME TOLERATING WELL, GLENYS IN PLACE MIDLINE LOWER ABDOMEN NO DRAINAGE NOTED, LETITIA JIMY DRAIN IN LEFT LOWER ABDOMEN NO DRAINAGE NOTED AT THIS TIME, CALL LIGHT WITHIN REACH
--- NOTE | 2020-03-09 19:40 | NUR ---
IV VANCO CANNCELLED PER MD ORDER REPORTED TO ME BY HENNY SNEED, VERIFIED NOT ON OCT, LAB VANCO CANCELLED, NOT NEEDED
[2020-03-10] VITALS (11 sets, daily range): BP systolic 116–130; BP diastolic 84–99
[2020-03-10 05:39] LABS: BASOPHILS # (AUTO) 0.1 (0.0-0.1); BASOPHILS % 1.2 % (0.0-1.0); EOSINOPHILS # (AUTO) 0.1 (0.0-0.4); EOSINOPHILS % 1.1 % (0.0-6.0); HEMATOCRIT 40.5 % (38.2-49.6); HEMOGLOBIN 13.3 g/dL (14.0-18.0); LYMPHOCYTES # (AUTO) 1.7 (1.0-3.2); LYMPHOCYTES % 15.5 % (18.0-39.1); MEAN CORPUSCULAR HEMOGLOBIN 29.2 pg (28-32); MEAN CORPUSCULAR HGB CONC 32.8 g/dL (31-35); MONOCYTES # (AUTO) 1.6 (0.2-0.8); MONOCYTES % 14.8 % (4.4-11.3); NEUTROPHILS # (AUTO) 6.5 (2.1-6.9); NEUTROPHILS % 58.5 % (38.7-80.0); PLATELET COUNT 390 x10e3/uL (140-360); RED BLOOD COUNT 4.55 x10e6/uL (4.3-5.7); RED CELL DISTRIBUTION WIDTH 12.8 % (11.7-14.4)
[2020-03-10] MEDS: GABAPENTIN 100 MG CAP PO SCH ×3 (05:40→21:23)
[2020-03-10 07:36] LABS: EOSINOPHILS % (MANUAL) 2 % (0-7); LYMPHOCYTES % (MANUAL) 24 % (19-48); MONOCYTES % (MANUAL) 12 % (3.4-9.0); NEUTROPHILS % (MANUAL) 59 % (40-74)
[2020-03-10 07:37] LABS: MYELOCYTES % (MANUAL) 3 % (0-0); PLATELET ESTIMATE SLIGHTLY INCREASED
[2020-03-10 07:38] LABS: PLATELET MORPHOLOGY COMMENT FEW GIANT; RBC MORPHOLOGY COMMENT NORMAL
[2020-03-10] MEDS: ZINC SULFATE 220 MG CAP PO SCH (09:00)
[2020-03-10] MEDS: ASCORBIC ACID 500 MG TAB PO SCH ×2 (10:05→16:17)
[2020-03-10] MEDS: BICALUTAMIDE 50 MG TABLET PO SCH (10:05)
[2020-03-10] MEDS: SENNA-S TABLET PO SCH ×2 (10:05→21:00)
[2020-03-10] MEDS: TAMSULOSIN HCL 0.4 MG CAP PO SCH (10:05)
[2020-03-10] MEDS: DOCUSATE SODIUM 100 MG CAP PO SCH ×2 (10:05→16:17)
[2020-03-10] MEDS: ENOXAPARIN SODIUM INJ 100 MG/ML SYR SC SCH ×2 (10:06→21:24)
--- NOTE | 2020-03-10 12:24 | NUR ---
Received order for inpatient rehab. Spoke to pt with HENNY Mares. Pt gave choice for [facility]. Signed choice letter placed in front of chart. Referral was faxed to [facility] at [phone]. Notified Preeti with [facility] of referral.
[2020-03-10] MEDS: HYDROCODONE/APAP 10MG-325MG TAB PO PRN (16:18)
--- NOTE | 2020-03-10 16:23 | Progress Note ---
DATE: SUBJECTIVE: Mr. Reyna is doing well and comfortable. PHYSICAL EXAMINATION: GENERAL: He is currently alert, oriented. VITAL SIGNS: Stable. Currently afebrile. HEENT: He is not icteric. NECK: Supple. CHEST: Clear. HEART: S1 and S2. No S3, S4, or murmur. ABDOMEN: Soft. There is still however a drain in as mentioned above but it is looking good. His wound cultures showing Pseudomonas aeruginosa and Enterococcus faecalis. Pseudomonas aeruginosa sensitivity was noted. MEDICATIONS: He is currently on Lovenox, vitamin C. He is on gabapentin. He is not on any antibiotic. IMPRESSION: Abdominal wound infection, seems to be doing really good. There is some drainage from stable, fever resolved. From Infectious Disease point of view, the patient is stable. I think he can be discharged home or skilled PT, OT. Discussed with case management. Continue droplet isolation for 2 weeks. No need to repeat the PCR. MD JAYNA Robertson/MODAlan /[id number]
[2020-03-11] VITALS (11 sets, daily range): BP systolic 107–127; BP diastolic 82–91
[2020-03-11] MEDS: MORPHINE SULFATE INJ 4 MG/ML INJ 1ML IV PRN (02:13)
[2020-03-11] MEDS: GABAPENTIN 100 MG CAP PO SCH ×3 (06:45→22:00)
--- NOTE | 2020-03-11 07:08 | NUR ---
MD KOEHLER ROUNDING ON PATIENT, GIVEN UPDATE ON PATIENT AMOUNT OF DRAINAGE PRESENT IN JIMY DRAINAGE, ADVISED LESS THAN 10CC NOTED FOR LAST COUPLE OF SHIFTS, PT CLEARED FROM UROLOGY STANDPOINT TO BE DISCHARGED
[2020-03-11] MEDS: ASCORBIC ACID 500 MG TAB PO SCH ×2 (09:13→17:18)
[2020-03-11] MEDS: ZINC SULFATE 220 MG CAP PO SCH (09:13)
[2020-03-11] MEDS: BICALUTAMIDE 50 MG TABLET PO SCH (09:13)
[2020-03-11] MEDS: ENOXAPARIN SODIUM INJ 100 MG/ML SYR SC SCH ×2 (09:13→22:00)
[2020-03-11] MEDS: DOCUSATE SODIUM 100 MG CAP PO SCH ×2 (09:13→17:18)
[2020-03-11] MEDS: TAMSULOSIN HCL 0.4 MG CAP PO SCH (09:13)
[2020-03-11] MEDS: SENNA-S TABLET PO SCH ×2 (09:13→20:17)
[2020-03-11 09:47] LABS: BASOPHILS # (AUTO) 0.1 (0.0-0.1); BASOPHILS % 0.6 % (0.0-1.0); EOSINOPHILS # (AUTO) 0.2 (0.0-0.4); EOSINOPHILS % 1.5 % (0.0-6.0); HEMATOCRIT 30.9 % (38.2-49.6); HEMOGLOBIN 10.2 g/dL (14.0-18.0); LYMPHOCYTES # (AUTO) 1.7 (1.0-3.2); LYMPHOCYTES % 13.9 % (18.0-39.1); MEAN CORPUSCULAR HEMOGLOBIN 29.1 pg (28-32); MONOCYTES # (AUTO) 1.8 (0.2-0.8); NEUTROPHILS # (AUTO) 7.4 (2.1-6.9); NEUTROPHILS % 61.6 % (38.7-80.0); PLATELET COUNT 303 x10e3/uL (140-360); RED BLOOD COUNT 3.51 x10e6/uL (4.3-5.7); RED CELL DISTRIBUTION WIDTH 13.1 % (11.7-14.4)
[2020-03-11 10:03] LABS: ALANINE AMINOTRANSFERASE 26 IU/L (0-55); ALBUMIN 2.2 g/dL (3.5-5.0); ALBUMIN/GLOBULIN RATIO 0.5 (0.8-2.0); ALKALINE PHOSPHATASE 55 IU/L (40-150); BLOOD UREA NITROGEN 22 mg/dL (7-26); BUN/CREATININE RATIO 24 (6-25); CALCIUM 8.3 mg/dL (8.4-10.2); CARBON DIOXIDE 20 mmol/L (22-29); CHLORIDE 105 mmol/L (98-107); CREATININE, SERUM 0.93 mg/dL (0.72-1.25); EST GLOMERULAR FILTRATION RATE > 60 ML/MIN (60-); GLUCOSE 135 mg/dL (74-118); SODIUM 135 mmol/L (136-145)
--- NOTE | 2020-03-11 10:31 | Diagnostic Imaging Report ---
EXAMINATION: CHEST SINGLE (PORTABLE) INDICATION: Viral pneumonia COMPARISON: Chest radiograph 03/05/2020 FINDINGS: LINES/TUBES:Left PICC line unchanged. LUNGS:The lung volumes are low. Mild patchy bibasilar opacities. PLEURA:No pleural effusion or pneumothorax. MEDIASTINUM:The cardiomediastinal silhouette appears normal in size and shape. BONES/SOFT TISSUES:No acute osseous injury. ABDOMEN:No free air under the diaphragm. IMPRESSION: Low lung volumes with mild patchy bibasilar opacities which may represent subsegmental atelectasis versus pneumonitis. Signed by: Ishan Clark MD on 03/11/2020 10:28 AM
--- NOTE | 2020-03-11 10:58 | NUR ---
[facility] at [phone].
--- NOTE | 2020-03-11 13:43 | NUR ---
ACUTE INPATIENT REHAB DISCHARGE INFORMATION PATIENT HAS BEEN ACCEPTED TO: NAME: [facility] ADDRESS: [address] [place] [address] ACCEPTING ADZ WORKER: Carissa Padilla ACCEPTING MD: Dr. Arjun Acosta ROOM: will be assigned on report NURSE CALL REPORT TO: [phone] THE FOLLOWING DOCUMENTS MUST ACCOMPANY PATIENT FOR TRANSFER: copy of chart, transfer MAR COPIED CHART: Yani, community services coordinator MOT INFO RECEIVED FROM: Preeti with [facility] ORDER/RECONCILED MED LIST: to be obtained by bedside RN [id number] DNR: n/a MOT completed and given to HENNY Garcia. Addendum: 03/11/20 at 1625 by Kaitlin Addison CM Pending confirmation on transfer time with [facility]
--- NOTE | 2020-03-11 18:36 | Progress Note ---
DATE: SUBJECTIVE: Mr. Reyna remains in medical floor, comfortable. REVIEW OF SYSTEMS: He is just weak. PHYSICAL EXAMINATION: GENERAL: He is currently alert and oriented. VITAL SIGNS: Stable, afebrile. HEENT: He is not icteric. NECK: Supple. CHEST: Clear. HEART: S1 and S2. No S3, S4, or murmur. ABDOMEN: Soft. Bowel sounds present. No tenderness. EXTREMITIES: No edema. His wound is healing and now his drainage is very minimal to all the blood. IMPRESSION: 1. Debility. The patient is going for skilled care facility for PT/OT versus rehab. 2. Abdominal wound infection, really doing well, resolved. 3. Fever, resolved. He is currently off antibiotics, stable. He would need PT/OT. 4. COVID-19 on February 26 is not infectious. From now one, he could be in droplet isolation. If he is discharged, there is no need for negative pressure room. General precaution. Discussed with the patient. MD JAYNA Robertson/MARIAN /[id number]
--- NOTE | 2020-03-11 19:30 | NUR ---
Resumed care of patient. Patient awake and resting in bed on room air. Vital signs stable, no s/s of distress at this time. Bed locked and in lowest position, side rails up x3, alarm on, call light placed within reach. All safety measures in place. Will continue to monitor.
--- NOTE | 2020-03-11 19:54 | NUR ---
Spoke to Dr. Reyes regarding patient's elevated temp of 100.3. Received orders for Tylenol 650 mg PO Q6H PRN.
[2020-03-11] MEDS ORDERED: ACETAMINOPHEN 325 MG TAB PO PRN (20:00)
--- NOTE | 2020-03-11 22:42 | NUR ---
Called [facility] at [phone] for updates on pending transfer. Spoke with Rachael and was told that patient is not listed in their system. Was told to call their other facility down the street that also goes by the name [facility], at [phone]. Called and was told that patient is not listed in their system either. Was advised to call back tomorrow morning to check with their case management. Called [phone] again to confirm that patient is not in their system. Spoke with Rajwinder INMAN and was told that she will check and call back. [facility] housekeeping assistant made aware of situation. Awaiting return call from [facility] at this time.
--- NOTE | 2020-03-11 23:04 | NUR ---
Spoke with Dr. Reyes who stated that he didn't order a transfer, and to continue care at this time. [facility] supervisor [facility] and [facility] made aware. Per supervisor [facility], she will speak to [facility] case management in the morning.
[2020-03-12] VITALS (13 sets, daily range): BP systolic 104–121; BP diastolic 81–97
[2020-03-12] MEDS: HYDROCODONE/APAP 10MG-325MG TAB PO PRN (00:19)
[2020-03-12] MEDS: GABAPENTIN 100 MG CAP PO SCH ×3 (05:30→21:56)
[2020-03-12] MEDS: ZINC SULFATE 220 MG CAP PO SCH (09:07)
[2020-03-12] MEDS: ENOXAPARIN SODIUM INJ 100 MG/ML SYR SC SCH ×2 (09:07→21:56)
[2020-03-12] MEDS: BICALUTAMIDE 50 MG TABLET PO SCH (09:07)
[2020-03-12] MEDS: ASCORBIC ACID 500 MG TAB PO SCH ×2 (09:07→17:06)
[2020-03-12] MEDS: SENNA-S TABLET PO SCH ×2 (09:07→21:56)
[2020-03-12] MEDS: DOCUSATE SODIUM 100 MG CAP PO SCH ×2 (09:07→17:06)
[2020-03-12] MEDS: TAMSULOSIN HCL 0.4 MG CAP PO SCH (09:07)
[2020-03-12] MEDS ORDERED: HYDROCODONE/APAP 10MG-325MG TAB PO PRN (09:30)
--- NOTE | 2020-03-12 10:30 | NUR ---
JIMY DRAIN TO LEFT LOWER ABD REMOVED. NO BLEEDING NOTED. CLEAN DRESSING APPLIED. PATIENT TOLERATED WELL
--- NOTE | 2020-03-12 12:32 | NUR ---
PATIENT HAS GROSS HEMATURIA. DR. MILKA THORNTON NOTIFIED Addendum: 03/12/20 at 1300 by NAREN JAIME RN PER OFFICE PAGED BUT NO RETURN CALL BY 1 PM, REPAGED
--- NOTE | 2020-03-12 14:00 | NUR ---
20FR CRUDE TEMPLETON PLACED ORDERED BY DR. MILKA KOEHLER. JEL APPLIED TO INNER URETHRA, TEMPLETON INSERTED ALL THE WAY TO HUB, BALLOON FILLED WITH 20CC WATER, TEMPLETON FLUSHED WITH NORMAL SALINE USING STERILE APPROACH AND DRAINAGE BAG APPLIED. TEMPLETON HAS A GOOD RETURN OF DARK RED BLOODY URINE. PATIENT TOLERATED PROCEDURE WELL AND STATES RELIEF OF PAIN RELATED TO ATTEMPTING TO URINATE AND STRAINING TO URINATE
--- NOTE | 2020-03-12 14:01 | NUR ---
Per Preeti with [facility], pt can transfer. HENNY Edwards was notified.
--- NOTE | 2020-03-12 15:10 | NUR ---
DR. ANTON ORDERED CBC BEFORE TRANSFER [facility]. SAME SENT TO LAB. AWAITING RESULTS TO SENT TO DR ANTON
[2020-03-12 15:18] LABS: BASOPHILS # (AUTO) 0.1 (0.0-0.1); BASOPHILS % 0.5 % (0.0-1.0); EOSINOPHILS % 0.3 % (0.0-6.0); HEMATOCRIT 35.6 % (38.2-49.6); LYMPHOCYTES # (AUTO) 1.7 (1.0-3.2); LYMPHOCYTES % 11.3 % (18.0-39.1); MEAN CORPUSCULAR HEMOGLOBIN 28.8 pg (28-32); MEAN CORPUSCULAR HGB CONC 33.7 g/dL (31-35); MEAN CORPUSCULAR VOLUME 85.6 fL (81-99); MONOCYTES # (AUTO) 1.7 (0.2-0.8); MONOCYTES % 11.9 % (4.4-11.3); NEUTROPHILS # (AUTO) 10.2 (2.1-6.9); NEUTROPHILS % 69.6 % (38.7-80.0); PLATELET COUNT 423 x10e3/uL (140-360); RED BLOOD COUNT 4.16 x10e6/uL (4.3-5.7); RED CELL DISTRIBUTION WIDTH 13.2 % (11.7-14.4)
--- NOTE | 2020-03-12 15:25 | NUR ---
ORDERS WERE PLACED IN THIS PATIENTS CHART THAT APPEAR TO BE SOMETHING FROM SURGERY, THAT ARE NOT FOR THIS PATIENT PHARMACY WILL BE NOTIFIED SO THEY CAN REMOVE THEM AND NOTIFY THE ORDERER Addendum: 03/12/20 at 1530 by NAREN JAIME RN THESE ARE NOT ORDERS BUT CHARGES, PHARMACY OKAYED THEM ON THE PATIENTS CHART
[2020-03-12 20:54] LABS: EOSINOPHILS % (MANUAL) 1 % (0-7); LYMPHOCYTES % (MANUAL) 14 % (19-48); MONOCYTES % (MANUAL) 15 % (3.4-9.0); NEUTROPHILS % (MANUAL) 67 % (40-74); PLATELET ESTIMATE ADEQUATE; PLATELET MORPHOLOGY COMMENT NORMAL; RBC MORPHOLOGY COMMENT NORMAL
--- NOTE | 2020-03-12 23:18 | NUR ---
Patient DC'd to [facility] via EMS with PICC line and Moralez as ordered by MD. Vital signs stable on room air, no s/s of acute distress at this time. All belongings with patient.
--- NOTE | 2020-03-31 04:21 | Operative Report ---
DATE OF PROCEDURE: 03/03/2020 SURGEON: Anmol Gorman MD PREOPERATIVE DIAGNOSES: 1. Prostate cancer. 2. Benign prostatic hypertrophy. POSTOPERATIVE DIAGNOSES: 1. Prostate cancer. 2. Benign prostatic hypertrophy. OPERATIONS PERFORMED: Note, these are both staged and unrelated procedures performed during the postoperative period and of the transurethral resection of the prostate. 1. Bilateral pelvic lymphadenectomy. 2. Flexible cystoscopy (separate procedure performed for the evaluation of the healing process of the benign prostatic hypertrophy following transurethral resection). ANESTHESIA: General. COMPLICATIONS: None. CLINICAL SUMMARY: Renny Reyna is a 54-year-old man, who is status post transurethral resection of prostate for obstructive BPH with prostate cancer and is brought to the operating room to evaluate for any chely metastases given is PSA and pathology report. He is aware of the risks of bleeding, infection, injury to adjacent structures, need for additional procedures, and elected to proceed. The patient feels well and he has no symptomatology. OPERATIVE PROCEDURE IN DETAIL: Informed consent was verified. Renny Reyna was properly identified, taken to the operating room, and placed on the operating table in supine position. Anesthesia was uneventfully begun. The patient's abdomen and genitalia were shaved, prepared, and draped in usual sterile fashion. Flexible cystoscopy was performed. Flexible cystoscope was brought in under direct vision. It was guided down the relatively unremarkable urethra, passed into normal sphincteric region into the prostate bed. The prostate bed was open. It was not fully reepithelialized. It was not healed following transurethral resection. We entered the patient's bladder, where panendoscopy revealed no suspicious lesions. There were no stones. Grade 2 trabeculations were noted. The cystoscope was withdrawn. A Moralez catheter was placed. A midline infraumbilical incision was made, carried through all layers of the abdominal wall and an extraperitoneal approach was utilized. A Koroma [place]view retractor was utilized as well. We performed bilateral pelvic lymphadenectomy. We utilized hemoclips to control lymphatic channels. Margins of resection included Cristóbal's ligament distally, bifurcation of the common iliac proximally, the external vein anterolaterally, and the obturator fossa posteromedially. We obtained lymph node specimens bilaterally and both obturator nerves were left intact. There was no vascular injury. Copious irrigation was performed. We verified hemostasis. A Jarett drain was placed through a separate stab incision, secured to the skin with nylon suture. After copiously irrigating it again, the patient's incision was then approximated in layers. We approximated the rectus muscles with interrupted Vicryl suture. The abdominal wall fascia was approximated with heavy Vicryl suture in interrupted [id number] fashion. The skin was approximated with skin don. Sterile dressings were applied, and the patient was uneventfully reversed from anesthesia and taken to recovery room in stable condition. There were no complications the procedure and he tolerated the procedure well. We will proceed with routine postoperative care and of course ongoing urological followup. MD DAVID Michael/MARIAN /[id number]
== END 2020-03-12 23:13 | DRG 707 ==
LOC: OR 10:56 → MED/SURG 17:35 → IMCU 20:05
PROVIDERS: ADMIT Internal Medicine; ATTEND Internal Medicine
PROC: 07TC4ZZ Resection of Pelvis Lymphatic, Percutaneous Endoscopic Approach (ICD-10-PCS; 2020-03-03)
PROC: 0TJB8ZZ Inspection of Bladder, Via Natural or Artificial Opening Endoscopic (ICD-10-PCS; 2020-03-03)
PROC: 02HV33Z Insertion of Infusion Device into Superior Vena Cava, Percutaneous Approach (ICD-10-PCS; principal; 2020-03-05)
DX: C61 Malignant neoplasm of prostate (principal); U07.1 COVID-19; J15.9 Unspecified bacterial pneumonia; J96.00 Acute respiratory failure, unspecified whether with hypoxia or hypercapnia; I26.99 Other pulmonary embolism without acute cor pulmonale; Z68.41 Body mass index [BMI] 40.0-44.9, adult; T81.49XA Infection following a procedure, other surgical site, initial encounter; D68.9 Coagulation defect, unspecified; T81.43XA Infection following a procedure, organ and space surgical site, initial encounter; Z86.711 Personal history of pulmonary embolism; N40.1 Benign prostatic hyperplasia with lower urinary tract symptoms; R39.14 Feeling of incomplete bladder emptying; R35.1 Nocturia; R39.12 Poor urinary stream; M51.36 Other intervertebral disc degeneration, lumbar region; B96.5 Pseudomonas (aeruginosa) (mallei) (pseudomallei) as the cause of diseases classified elsewhere; E66.01 Morbid (severe) obesity due to excess calories
CPT/HCPCS: 36415; 36569; 71045; 71260; 72148; 74177; 80048; 80053; 80076; 82150; 83690; 85025; 85610; 85730; 86850; 86900; 87040; 87071; 87086; 87186; 87205; 88305; 93306; 93970; 96361; 97139; J0690; J0696; J1644; J1650; J2001; J2250; J2270; J2405; J3010; J3370; J7050; Q9967; U0002